=== PATIENT | female | born 1960 | race Caucasian/White ===

== ENCOUNTER → 2024-03-26 | Outpatient (CLI) | payer BC, SELFPAY ==
--- NOTE | 2024-03-26 13:00 | XR_ITS ---
Examination: Breast ultrasound complete, bilateral Date and time of exam: March 26, 2024 1321 hours INDICATIONS: Palpable right breast lump 10:00 position note is 5 months ago with breast pain, mammogram January 25 2024 mm opacity 9:00 position right breast 5 mm nodule 9:00 position right breast Technique: Real-time grayscale ultrasonographic imaging bilateral breasts, including all 4 quadrants as well as nipple retroareolar and axillary regions. Findings: Sonographic images right breast 10:00 oval mass circumscribed 11 x 6 x 9 mm Sonographic images left breast No cystic or solid mass IMPRESSION: BI-RADS Category 3: Probably benign findings One additional 6 month right breast sonogram follow-up is needed to document stability of 10:00 nodule right breast
--- NOTE | 2024-03-26 14:15 | XR_ITS ---
Examination: Screening digital mammography, bilateral Computer aided detection 3-D breast Tomosynthesis, bilateral Date and time of exam: March 26, 2024 1345 hours Compared to mammograms dating to November 07, 2017 Indication: Screening, patient states lump in the right breast 5 months Technique: Nonmagnified MLO, CC views of the breasts to been obtained, reconstructed from 3-D Tomosynthesis images. R2 computer aided detection program utilized for evaluation of suspicious masses and/or abnormal calcifications. 3-D Tomosynthesis images obtained. Findings: Scattered areas of fibroid rather density 8mm mass with partially indistinct margins at the palpable marker site upper outer right breast anterior depth Impression: BI-RADS Category 0: Incomplete: Need additional imaging evaluation 8 mm mass with partially indistinct margins at the palpable marker site upper outer right breast anterior depth, recommend follow-up spot tomographic views of this mass as well as right breast sonography to complete the workup
== END | disposition home or self-care (01) ==
PROVIDERS: PCP Family Medicine; Referring Provider Family Medicine; Visit Provider Family Medicine
DX: Z12.31 Encounter for screening mammogram for malignant neoplasm of breast (principal); N63.11 Unspecified lump in the right breast, upper outer quadrant
CPT/HCPCS: 76641; 77063; 77067

== ENCOUNTER 2024-04-13 14:49 | Emergency (ER) | payer BC, SELFPAY ==
[2024-04-13 14:50] VITALS: BMI 40.2
--- NOTE | 2024-04-13 14:53 | EKG_ITS ---
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
[2024-04-13 15:16] VITALS: BP 150/88; PULSE 79; RESP 18; TEMP 36.8; O2SAT 94
--- NOTE | 2024-04-13 15:23 | XR_ITS ---
Examination: PA lateral chest 2 views TECHNIQUE: Upright PA lateral chest 2 views Exam date and time: April 13, 2024 1538 hours COMPARISON: December 27, 2023 INDICATIONS: Chest pain today. FINDINGS: Normal heart size Moderate vascular congestion No ruddy pulmonary edema No lobar pneumonia IMPRESSION: Moderate vascular congestion
--- NOTE | 2024-04-13 15:23 | PD.EDRME ---
Rapid Medical Screening Exam RME Arrival date/time: 04/13/24 14:49 63-year-old female presents the emergency department today states she has had a cough ongoing for the last couple of months patient reports is taken to course of antibiotics as well as steroids patient reports that she took Mucinex today and felt palpitations Chief Complaint: Arrhythmia/Palpitations Time Seen by Provider: 04/13/24 14:57 Vital signs: Vital Signs Temperature 98.2 F 04/13/24 15:16 Pulse Rate 79 04/13/24 15:16 Respiratory Rate 18 04/13/24 15:16 Blood Pressure 150/88 H 04/13/24 15:16 Pulse Oximetry (%) 94 L 04/13/24 15:16 Oxygen Delivery Method Room Air 04/13/24 15:16
[2024-04-13 15:57] LABS: Basophils # (Auto) 0.1 Thou/mm3 (0.0-0.2); Basophils % (Auto) 1 % (0-2.5); Eosinophils # (Auto) 0.7 Thou/mm3 (0.0-0.5); Eosinophils % (Auto) 6 % (0-10); Hematocrit 37.3 % (36.0-46.0); Hemoglobin 12.6 g/dL (12.0-16.0); Immature Granulocytes % (Auto) 0 % (0-0); Immature Granulocytes Auto 0.05 Thou/mm3 (0.00-0.00); Lymphocytes # (Auto) 1.8 Thou/mm3 (1.0-4.8); Lymphocytes % (Auto) 15 % (10-50); Mean Corpuscular HGB Conc 33.8 g/dl (31.0-37.0); Mean Corpuscular Hemoglobin 30.2 pg (25.0-35.0); Mean Corpuscular Volume 89 fL (80-100); Monocytes # (Auto) 0.7 Thou/mm3 (0.0-0.8); Monocytes % (Auto) 6 % (0-12); Neutrophils # (Auto) 8.4 Thou/mm3 (1.8-7.7); Neutrophils % (Auto) 72 % (37-80); Nucleated Red Blood Cell % 0 /100 WBC (0); Platelet Count 300 Thou/mm3 (140-440); RDW Standard Deviation 47.5 fL (36.4-46.3); Red Blood Count 4.17 Miln/mm3 (4.00-5.20); White Blood Count 11.7 Thou/mm3 (3.6-11.0)
[2024-04-13 16:11] LABS: Alanine Aminotransferase 9 U/L (10-49); Albumin, Serum 4.7 gm/dL (3.4-4.8); Albumin/Globulin Ratio 1.8 (1.2-2.2); Alkaline Phosphatase 79 U/L (46-116); Anion Gap 9 (7-16); Aspartate Amino Transferase 11 U/L (0-34); BUN/Creatinine Ratio 9 Ratio (12-20); Bilirubin,Total 0.7 mg/dL (0.3-1.2); Blood Urea Nitrogen 8 mg/dL (9-23); Calcium 9.6 mg/dL (8.3-10.6); Calcium (Corrected) 9.6 mg/dL (8.5-10.1); Carbon Dioxide 29.5 mMol/L (20.0-31.0); Chloride 103 mMol/L (98-107); Creatinine (Component) 0.9 mg/dL (0.6-1.3); Estimated Creatinine Clearance 69.8 mL/min (>60); Globulin 2.6 gm/dL (2.3-3.5); Glucose 106 mg/dL (74-106); Osmolality,Calculated 279 (275-295); Potassium 3.3 mMol/L (3.4-5.1); Sodium 141 mMol/L (136-145); Total Protein 7.3 gm/dL (5.7-8.2); Troponin I < 0.002 ng/mL (0.0-0.045); eGFR > 60 See Note
[2024-04-13 17:40] LABS: B-Type Natriuretic Peptide 66 pg/mL (0-100)
[2024-04-13 19:21] VITALS: BP 148/70; PULSE 71; RESP 20; O2SAT 94
--- NOTE | 2024-04-13 19:28 | EDNOTE_ITS ---
ED General RME/HPI General Chief complaint: Arrhythmia/Palpitations Stated complaint: PALPITATION FOR 30 MINUTES Time Seen by Provider: 04/13/24 14:57 Arrival date/time: 04/13/24 14:49 CC: Palpitations HPI ongoing for approximately 15 minutes approximately 45 minutes ago with spontaneous resolution. The patient is awake alert oriented denies any chest pain states he has a history of taking 2 rounds of antibiotics and steroids for a lung infection , and then took Metamucil except for the cough and may feel bit better. The patient has no particular complaints at this time. RME / HPI RME / HPI narrative: 04/13/24 14:49 63-year-old female presents the emergency department today states she has had a cough ongoing for the last couple of months patient reports is taken to course of antibiotics as well as steroids patient reports that she took Mucinex today and felt palpitations Related Data Home Medications ?Medication ?Instructions ?Recorded ?Confirmed clonazepam 1 mg tablet (Klonopin) 1 mg PO BID PRN Anxiety #0 tabs 10/22/13 05/10/22 bupropion HCl 200 mg tablet,12 hr 200 mg PO QDAY ##0 11/22/15 05/10/22 sustained-release (Wellbutrin SR) fluconazole 150 mg tablet See Rx Instructions .Route .COMPLEX 05/10/22 05/10/22 hydrochlorothiazide 25 mg tablet 25 mg PO QDAY 05/10/22 05/10/22 hydrocodone 5 mg-acetaminophen 300 1 tab PO Q6H PRN shoulder pain 05/10/22 05/10/22 mg tablet lamotrigine 200 mg tablet 200 mg PO QDAY 05/10/22 05/10/22 nitrofurantoin 100 mg PO Q12H 05/10/22 05/10/22 monohydrate/macrocrystals 100 mg capsule pantoprazole 40 mg tablet,delayed 40 mg PO QDAY 05/10/22 05/10/22 release trazodone 50 mg tablet 50 mg PO TID 05/10/22 05/10/22 Allergies Allergy/AdvReac Type Severity Reaction Status Date / Time adhesive tape Allergy Severe SEVERE Verified 04/13/24 14:49 REDNESS AND SWELLING, PIMPLES diphenhydramine Allergy Severe SEVER Verified 04/13/24 14:49 HEADACHES morphine Allergy Severe PROJECTILE Verified 04/13/24 14:49 VOMITING, N/V nitroglycerin Allergy Severe HEADACHE Verified 04/13/24 14:49 latex Allergy Intermediate Rash Verified 04/13/24 14:49 ketorolac [From Toradol] Allergy Abdominal Verified 04/13/24 14:49 Pain Review of Systems Review of Systems Narrative Review of Systems: GEN: No fever, no chills, no weight loss EYES: No discharge, no visual changes, no pain HEENT: No ear pain, no congestion, no sore throat PULM: No shortness of breath, no cough, no congestion CV: No chest pain, no dyspnea on exertion, + palpitations GI: No nausea, no vomiting, no diarrhea, no pain, no constipation : No frequency, no urgency, no dysuria MUSC/SKEL: No joint pain, no back pain SKIN: No rash PSYCH: No hallucinations, no depression HEME/LYMPH: No easy bleeding or bruising tendencies NEURO: No weakness, no headache Past Medical History Past Medical History NEUROLOGIC: Positive Neurological Disorders and Head Trauma (2017 ER VISIT, 2015 OVERNIGHT STAY HAD LEFT WRIST ZULAY); Negative Seizures CARDIAC: Negative Cardiac Disorders or Congestive Heart Failure RESPIRATORY: Negative Chronic Obstructive Pulmonary Disease (COPD) GASTROINTESTINAL: Positive Gastrointestinal Disorders, Gall Bladder Disease (FOR THIS PROC), Diverticulosis, Ulcer, Irritable Bowel, Hiatal Hernia (ESOPHAGEAL), Hemorrhoids (NO SURG), Gastroesophageal Reflux Disease (TAKES MED) and Obesity GENITOURINARY: Negative Genitourinary Disorders or Renal Disease REPRODUCTIVE: Positive Previous Pregnancies (X2) MUSCULOSKELETAL: Positive Musculoskeletal Disorders, Arthritis, Carpal Tunnel Syndrome (VARUN) and Fractures (RIGHT ANKLE ORIF HAD SCREWS AND REM) ENT: Positive Head Trauma (2017 ER VISIT, 2015 OVERNIGHT STAY HAD LEFT WRIST ZULAY) ENDOCRINE: Negative Endocrine Disorders, Diabetes Mellitus Type 1 or Diabetes Mellitus Type 2 HEMATOLOGIC: Negative Blood Disorders PSYCHO/SOCIAL: Positive Bipolar Disorder, Depression and Anxiety OTHER HISTORY: Positive Chicken Pox, Measles and Mumps; Negative Hospitalization, Autoimmune Disease, Shingles, Falls, Blood Transfusions, Blood Transfusion Reaction, Anesthesia Reactions, Chemotherapy, Radiation Therapy or MRSA Family History FAMILY HISTORY: Positive Family Psychiatric Problems (MOTHER), Family Cardiac Disorders (BROTHER,SISTER (HTN) FATHER (UT),SISTER (CVA)), Family Gastrointestinal Problems (FATHER), Family Cancer (MOTHER,FATHER (LUNG)) and Family Surgery (MOTHER,SISTER); Negative Family Respiratory Disorders or Family Anesthesia Reaction Surgical History SURGICAL: Positive Arthroscopy (left wrist) and Hysterectomy (VARUN SALPING) Social History SMOKING STATUS: Never smoker ED Exam Narrative Physical exam: [General: Obese not in any acute distress Head normocephalic HEENT: Within acceptable limits Neck is supple nontender Chest equal chest rise nontender to palpation Respiratory: Clear to auscultation no wheezes crackles or rubs CV: Rate rhythm is regular no murmurs rubs or clicks Abdomen is distended secondary to body habitus soft nontender no masses positive bowel sounds all 4 quadrants Back: No CVA tenderness no spinous process tenderness from cervical spine thoracic and lumbar spine Skin: Intact no petechiae rash induration ulceration or crepitus Extremities: Moving all extremity against resistance cap refill less than 2 seconds neurosensory intact. No lower extremity edema. Neuro: Awake alert oriented x3 Glascow coma 15 no focal deficits] Course Quality Measures none Orders Category Date Time Status Bedside COVID-19 Antigen Test NOW Care 04/13/24 15:23 Completed Bedside Influenza A&B Antigen Test NOW Care 04/13/24 15:23 Completed EKG (ED ONLY) *Do not use* NOW Care 04/13/24 14:53 Completed EKG (ED Only) Stat Exams 04/13/24 14:53 Draft XR chest 2V Stat Exams 04/13/24 15:23 Completed BNP [B-Type Natriuretic Peptide] Stat Lab 04/13/24 15:34 Completed CBC Stat Lab 04/13/24 15:34 Completed Comprehensive Metabolic Panel Stat Lab 04/13/24 15:34 Completed Troponin I Stat Lab 04/13/24 15:34 Completed Vital Signs Vital signs: Vital Signs Temperature 98.2 F 04/13/24 15:16 Pulse Rate 79 04/13/24 15:16 Respiratory Rate 18 04/13/24 15:16 Blood Pressure 150/88 H 04/13/24 15:16 Pulse Oximetry (%) 94 L 04/13/24 15:16 Oxygen Delivery Method Room Air 04/13/24 15:16 [facility] Patient data External records reviewed:: [facility] previous records Clinical information provided by:: patient Social determinants that could affect healthcare access:: none Patient has the following chronic illnesses:: Obesity anxiety How is presenting disease/condition affected by chronic disease/condition?: u neffected by Evaluation data The following diagnostics were reviewed and interpreted by me:: lab results, radiology exam(s) and EKG tracing(s) Lab and/or radiology exams considered but not ordered:: EKG performed at 1514 shows a ventricular rate of 7 9 NV interval 155 QRS of 88 QTc of 418 this is sinus rhythm nonspecific ST segment changes. CBC shows no acute leukocytosis anemia thrombocytopenia CMP shows no mild elevated glucose level no other electrolyte imbalances renal impairment transaminitis or T. bili elevation Troponin is negative BNP is negative Chest x-ray as interpreted by me read by radiology shows mild vascular engorgement. Interpretation Summary: Palpitations have spontaneously resolved the patient has no acute finding we will discharge the patient home with palpitations. Medications Medications considered but not ordered:: None none Medication administrations:: None Consultations Consultation(s) initiated? (list below): No Diagnosis Differential Diagnosis ED Complaint MDM: ACS UT pneumonia Most likely diagnosis given after review of the tests above:: Palpitations Admission Indicated Admission indicated?: not indicated Explain why admission is indicated or not indicated:: Stable for discharge Admission Request Was there a request for admission?: No Disposition Plan Disposition Plan: Discharge Discharge Attestation Discharge Attestation: The patient and all family members were given an opportunity to ask questions and understood the discharge instructions. Discharge instructions specifically effects, indications for sooner follow up or return to the emergency department, and the expected course of current diagnosis. Patient condition: Stable Medical Decision Making Differential Diagnosis Differential Diagnosis: ACS UT pneumonia Lab Data 04/13/24 15:34 04/13/24 15:34 Labs: Lab Results 04/13/24 Range/Units 15:34 WBC 11.7 H (3.6-11.0) Thou/mm3 RBC 4.17 (4.00-5.20) Miln/mm3 Hgb 12.6 (12.0-16.0) g/dL Hct 37.3 (36.0-46.0) % MCV 89 (80-100) fL MCH 30.2 (25.0-35.0) pg MCHC 33.8 (31.0-37.0) g/dl RDW Std Deviation 47.5 H (36.4-46.3) fL Plt Count 300 (140-440) Thou/mm3 Neut % (Auto) 72 (37-80) % Lymph % (Auto) 15 (10-50) % [place] % (Auto) 6 (0-12) % Eos % (Auto) 6 (0-10) % Baso % (Auto) 1 (0-2.5) % Neut # (Auto) 8.4 H (1.8-7.7) Thou/mm3 Lymph # (Auto) 1.8 (1.0-4.8) Thou/mm3 [place] # (Auto) 0.7 (0.0-0.8) Thou/mm3 Eos # (Auto) 0.7 H (0.0-0.5) Thou/mm3 Baso # (Auto) 0.1 (0.0-0.2) Thou/mm3 Immature Gran # (Auto) 0.05 H (0.00-0.00) Thou/mm3 Absolute Nucleated RBC 0.00 (0.00-0.00) Thou/mm3 Immature Gran % 0 (0-0) % Nucleated RBC % 0 (0) /100 WBC Sodium 141 (136-145) mMol/L Potassium 3.3 L (3.4-5.1) mMol/L Chloride 103 (98-107) mMol/L Carbon Dioxide 29.5 (20.0-31.0) mMol/L Anion Gap 9 (7-16) BUN 8 L (9-23) mg/dL Creatinine 0.9 (0.6-1.3) mg/dL Estim Creat Clear Calc 69.8 (>60) mL/min eGFR > 60 (60 - ) See Note BUN/Creatinine Ratio 9 L (12-20) Ratio Glucose 106 (74-106) mg/dL Calculated Osmolality 279 (275-295) Calcium 9.6 (8.3-10.6) mg/dL Corrected Calcium 9.6 (8.5-10.1) mg/dL Total Bilirubin 0.7 (0.3-1.2) mg/dL AST 11 (0-34) U/L ALT 9 L (10-49) U/L Alkaline Phosphatase 79 (46-116) U/L Troponin I < 0.002 (0.0-0.045) ng/mL B-Natriuretic Peptide 66 (0-100) pg/mL Total Protein 7.3 (5.7-8.2) gm/dL Albumin 4.7 (3.4-4.8) gm/dL Globulin 2.6 (2.3-3.5) gm/dL Albumin/Globulin Ratio 1.8 (1.2-2.2) Discharge Plan Plan Patient Disposition: HOME (Self Care) Patient condition on transfer: Stable Prescriptions/Referrals Prescriptions/Med Rec: No Action clonazepam [Klonopin] 1 MG tablet 1 mg PO BID PRN (Reason: Anxiety) Qty: 0 bupropion HCl [Wellbutrin SR] 200 MG tablet extended release 12 hr 200 mg PO QDAY Qty: 0 lamotrigine 200 mg tablet 200 mg PO QDAY trazodone 50 mg tablet 50 mg PO TID fluconazole 150 mg tablet See Rx Instructions .ROUTE .COMPLEX Patient Comments: TAKE 1 TABLET BY MOUTH NOW, MAY REPEAT 1 TABLET IN 10 DAYS IF NEEDED Rx Instructions: TAKE 1 TABLET BY MOUTH NOW, MAY REPEAT 1 TABLET IN 10 DAYS IF NEEDED pantoprazole 40 mg tablet,delayed release (DR/EC) 40 mg PO QDAY Patient Comments: TAKE 1 TABLET BY MOUTH EVERY DAY FOR GERD hydrochlorothiazide 25 mg tablet 25 mg PO QDAY nitrofurantoin monohyd/m-cryst 100 mg capsule 100 mg PO Q12H Patient Comments: TAKE 1 CAPSULE BY MOUTH EVERY 12 HOURS WITH FOOD FOR 7 DAYS hydrocodone-acetaminophen 5-300 mg tablet 1 tab PO Q6H PRN (Reason: shoulder pain) Patient Comments: TAKE 1 TABLET BY MOUTH EVERY 6 HOURS NEEDED FOR SHOULDER PAIN DIRECTED FOR 30 DAYS Referrals: Jonathan Gonzalez MD [Primary Care Provider] - In 1 week Problem List Clinical Impression: Palpitations Patient/Caregiver Discharge Instructions Education Materials: ED Palpitations Print Language: Botswanan Stand Alone Forms: [employer] Award Info., Patient Portal Info Letter PA/CRIMINAL ANALYST Supervising Physician PA/CRIMINAL ANALYST Supervising Physician: Jac Vanessa ENP
== END 2024-04-13 19:40 | disposition home or self-care (01) ==
PROVIDERS: Nurse Practitioner Primary Care; Emergency Provider Emergency Medicine; PCP Family Medicine
DX: R00.2 Palpitations (principal); E66.9 Obesity, unspecified; Z68.41 Body mass index [BMI] 40.0-44.9, adult; F41.9 Anxiety disorder, unspecified
CPT/HCPCS: 36415; 71046; 80053; 83880; 84484; 85025; 87400; 87811; 93005; 99283

== ENCOUNTER → 2024-05-22 | Outpatient (CLI) | payer BC, SELFPAY ==
--- NOTE | 2024-05-22 13:35 | XR_ITS ---
Examination: PA lateral chest 2 views TECHNIQUE: Upright PA lateral chest 2 views Exam date and time: May 22, 2024 1418 hours INDICATIONS: Coughing beginning 3 months ago. FINDINGS: Normal heart size. Lungs are clear. Mild thoracic kyphosis, chronic mild old wedging lower dorsal vertebral bodies IMPRESSION: No active disease
[2024-05-22 14:54] LABS: Misc Send Out* See Sep Rpt
[2024-05-23 14:42] LABS: Cocci Serology, IgM Negative (Negative)
[2024-05-25 12:16] LABS: Cocci Serology, IgG Negative (Negative)
== END | disposition home or self-care (01) ==
LOC: CDIM 13:24 → COPL 14:42
PROVIDERS: PCP Family Medicine; Referring Provider Nurse Practitioner Family; Visit Provider Nurse Practitioner Family
DX: R05.3 Chronic cough (principal)
CPT/HCPCS: 36415; 71046; 86331; 86635; 86738

== ENCOUNTER 2024-11-05 08:07 | Outpatient (RCR) | payer BC, SELFPAY ==
--- NOTE | 2024-11-05 10:51 | CTCCONSULT_ITS ---
[facility] [address] [place], [place] [address] Consultation Note Date: 11/05/2024 MR#: [id number] Name: BLADIMIR GUTIERRES : 1960 Dx: C50.911 Malignant neoplasm of unspecified site of right female breast Attending physician. Vahe Weber NP [facility] Reason for consultation. Patient with recent diagnosis of triple negative right breast CA referred to the cancer treatment center. History of Present Illness: Patient is a former employee of medical records department at [employer] felt a lump in the right breast, and oval mass 11 x 6 x 9 cm noted at 10:00 noted and mammogram and sonogram probably benign category 3 with 6 months right breast sonogram recommended. Patient was referred to general surgeon Dr. 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 Patient now referred to the cancer treatment center. Past Medical History: History of bronchitis tonsillitis gallbladder removal bipolar and depression diagnosis Meds. Hydrochlorothiazide bupropion Protonix Klonopin Lamictal Farideh trazodone Latuda Allergies none to meds family history. Family history.. Father and mother both had lung cancer. 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 Review of Systems: Has experienced dry mouth constipation diarrhea anxiety chest pains coughing up blood difficulty hearing injury ears easy bruising hayfever headaches nocturia trouble swallowing unexplained fatigue weight gain and loss Physical Exam: General: Adequate nourished appearing lady no acute distress HEENT: Atraumatic normocephalic extraocular intact no oral lesion no cervical or supraclavicular apathy CV: Easily palpable right breast mass in the central and upper outer quadrant of the breast measuring about 4 cm in diameter. There is also right axillary fullness as opposed to the left. Chest clear to auscultation heart regular rate and rhythm ABD: Soft organomegaly tenderness EXT: No cyanosis clubbing or edema Assessment:1. Triple negative right breast CA, noted to be increasing in size appears to now be T2 size at least 4 cm in diameter in the central and upper outer quadrant of the breast. Right axillary adenopathy also palpated. 2. Has already seen general surgeon who recommends neoadjuvant chemo. 3. Will ask that port be placed along with getting PET for staging and Echo in preparation for chemo. Dr. Mantilla, medical oncologist, to see patient in a few days. 4. Eventual breast cancer surgery and possible radiation therapy was also discussed with patient. 5. Thank you very much for allowing me to evaluate this patient. Cc: Vahe Weber NP [facility] Bjorn Seay MD Electronically signed by: Giacomo Jacobs MD, DABR 11/05/2024 10:48 AM
== END 2024-11-12 23:59 | disposition home or self-care (01) ==
LOC: SCTC 08:07
PROVIDERS: PCP Nurse Practitioner Family; Referring Provider Nurse Practitioner Family; Visit Provider Radiology Therapeutic Radiology
DX: C50.411 Malignant neoplasm of upper-outer quadrant of right female breast (principal); Z17.421 Hormone receptor negative with human epidermal growth factor receptor 2 negative status; R59.0 Localized enlarged lymph nodes
CPT/HCPCS: 99213; G0463

== ENCOUNTER 2024-12-11 09:42 | Outpatient (RCR) | payer BC, SELFPAY ==
--- NOTE | 2024-11-30 11:40 | CTCCONSULT_ITS ---
Patient: BLADIMIR GUTIERRES : 1960 MR#: [id number] Page 3 of 5 CONSULTATION NOTE DATE OF CONSULTATION: 11/30/2024 NAME: BLADIMIR GUTIERRES ACCOUNT: [id number] : 1960 AGE: 63 REFERRING PHYSICIAN: Vahe Weber MD PRIMARY PHYSICIAN: Vahe Weber MD REASON FOR VISIT: Triple negative of right breast ONCOLOGY HISTORY: DIAGNOSIS: Malignant neoplasm of unspecified site of right female breast [ICD10] C50.911 DATE OF DIAGNOSIS: 09/17/2024 STAGE/TNM: [id number] TREATMENT HISTORY: Care?Plan Start?Date Cycle Day Intent TNBC?Pembro?17?cy?TaxCar?4?cy?AC?4?cy?Keynote?522 11/30/2024 1 21 Curative?(primary) HISTORY OF PRESENT ILLNESS: 63-year-old female WITH NEW DIAGNSIS breast cancer . Patient is doing well. Initially diagnosed in 01/2024 Waited long time because of insurance issues. OTHER MEDICAL HISTORY/CONDITIONS: Right invasive ducatl carcinoma - 09/18/24 Depression / Bi-polar Osteoarthrits Right knee surgery - 2016 [facility] -2005 [facility] rotatoter cuff repairs; 1001; 2002 [facility] carpal tunnel -1999 Appendectomy - 1994 Left knee surgery - 1989 Left ankle fracture repair - 1973 FAMILY HISTORY: Father:?LUNG?-?dx?50's Mother:?LUNG?-?dx?60's Sibling:?Hand?NECK?-?dx?60's Cancer History:?Maternal aunt - breast - dx 50's SOCIAL HISTORY: Occupational?History:?RETIRED Education?Level:?Attended College, did not graduate Marital?Status:? 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 CONTROL UNKNOWN AMOUNT OF YRS :?3 Live?Births:?0 Age?1st?:?21 MEDICATIONS: 1. BuSpar - 200 mg Twice a Day 2. hydrochlorothiazide - 25 mg Daily 3. Klonopin - 1 mg Twice a Day 4. LaMICtal ODT - 200 mg 1 tab Twice a Day 5. Latuda - 40 mg 1 tab Every day before sleep 6. Protonix - 40 mg Daily Medications Last Reconciled by Yudelka Lam RN on 11/30/2024 ALLERGIES: morphine; diphenhydramine HCl REVIEW OF SYSTEMS: A complete 14-point review of systems was performed and is negative except as noted in interval history. PHYSICAL EXAMINATION: VITAL SIGNS: B/P?122/80, Height?62.5?inches, Oxygen?Saturation?95% Weight?225?lbs (Change?since?11/05/24:?0?lbs) PAIN: 8 - Very severe pain ECOG Performance Status: 2 - Symptomatic; ambulatory; capable of self-care; >50% of waking hrs. not in bed GENERAL APPEARANCE: Appears well, in no apparent distress, appropriately interactive. HEENT: Normocephalic, no temporal wasting, normal conjunctiva, no scleral icterus, normal hearing, lips without lesions, neck normal range of motion. CARDIOVASCULAR: Not assessed. PULMONARY: Normal respiratory effort, no respiratory distress or use of accessory muscles, speaking in full sentences, no tachypnea. EXTREMITIES: No pedal edema or cyanosis. SKIN: Normal skin appearance. NEUROLOGIC: Alert and oriented x4. PSHYCHIATRIC: Appropriate affect, mood normal, behavior normal, intact thought and speech. 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 Er/pr/her 2 negative Cyfopw3wy on keynote trial with chemoimmunotherapy RTC in 6-8 weeks Schedule for clinical trial ORDERS: Order # Description [id number] 3D Mammogram Diagnostic + Right + Breast Ultrasound [id number] MRI + Breast + With W/O Contrast [id number] CT Scan + Chest + Abdomen and Pelvis [id number] CBC + Comprehensive Metabolic Panel [id number] Lab Appointment [id number] CBC + Comprehensive Metabolic Panel [id number] Lab Appointment [id number] CBC + Comprehensive Metabolic Panel [id number] Lab Appointment [id number] CBC + Comprehensive Metabolic Panel [id number] Lab Appointment [id number] CBC + Comprehensive Metabolic Panel [id number] Lab Appointment [id number] CBC + Comprehensive Metabolic Panel [id number] Lab Appointment [id number] CBC + Comprehensive Metabolic Panel [id number] Lab Appointment [id number] CBC + Comprehensive Metabolic Panel [id number] Lab Appointment [id number] CBC + Comprehensive Metabolic Panel [id number] Lab Appointment [id number] CBC + Comprehensive Metabolic Panel [id number] Lab Appointment [id number] CBC + Comprehensive Metabolic Panel [id number] Lab Appointment [id number] CBC + Comprehensive Metabolic Panel [id number] Lab Appointment [id number] Cardiac ECHO [id number] CBC + Comprehensive Metabolic Panel [id number] Lab Appointment [id number] CBC + Comprehensive Metabolic Panel [id number] Lab Appointment [id number] CBC + Comprehensive Metabolic Panel [id number] Lab Appointment [id number] CBC + Comprehensive Metabolic Panel [id number] Lab Appointment [id number] Cardiac ECHO [id number] CBC + Comprehensive Metabolic Panel [id number] Lab Appointment [id number] CBC + Comprehensive Metabolic Panel [id number] Lab Appointment [id number] CBC + Comprehensive Metabolic Panel [id number] Lab Appointment [id number] CBC + Comprehensive Metabolic Panel [id number] Lab Appointment [id number] CBC + Comprehensive Metabolic Panel [id number] Lab Appointment [id number] CBC + Comprehensive Metabolic Panel [id number] Lab Appointment [id number] CBC + Comprehensive Metabolic Panel [id number] Lab Appointment [id number] CBC + Comprehensive Metabolic Panel [id number] Lab Appointment [id number] CBC + Comprehensive Metabolic Panel [id number] Lab Appointment RETURN TO CLINIC: I reviewed the diagnosis, prognosis, and recommended treatment/procedure options with the patient (and/or their legal fulfillment representative), including the potential benefits, risks, side effects and alternative therapies. We also discussed the option of no treatment and the possibility of clinical trial participation, if applicable. All questions were addressed, and they demonstrated understanding. They provided informed consent to proceed with the proposed plan of care. BILLING AND COMPLIANCE: I reviewed external records from providers outside my specialty as summarized above. I spent a total of 50 minutes on this patient?s care on the day of their visit excluding time spent related to any billed procedures. This time includes time spent with the patient as well as time spent documenting in the medical record, reviewing patients records and tests, obtaining history, placing orders, communicating with other healthcare professionals, counseling the patient, family or caregiver, and/or care coordination for the diagnoses above. Electronically Signed by: Yair Mantilla MD T: 11:38 AM CC: PCP: Vahe Weber Referring: Vahe Weber This document was completed utilizing speech recognition software. Grammatical errors, random word insertions, pronoun errors, and incomplete sentences are an occasional consequence of this system due to software limitations, ambient noise, and hardware issues. Any formal questions or concerns about the content, text or information contained within the body of this dictation should be directly addressed to the provider for clarification.
== END 2024-12-13 23:59 | disposition home or self-care (01) ==
LOC: SCTC 09:42
PROVIDERS: PCP Nurse Practitioner Family; Referring Provider Nurse Practitioner Family; Visit Provider Internal Medicine Hematology & Oncology
DX: C50.411 Malignant neoplasm of upper-outer quadrant of right female breast (principal); Z17.421 Hormone receptor negative with human epidermal growth factor receptor 2 negative status
CPT/HCPCS: 99213; G0463

== ENCOUNTER → 2024-12-11 | Outpatient (CLI) | payer BC, SELFPAY ==
--- NOTE | 2024-12-11 13:21 | XR_ITS ---
Examination: Right knee 2 views Technique one AP lateral right knee 2 views Date and time: December 11, 2024 1359 hours INDICATIONS: Patient fell 3 weeks ago with injury to the knee, knee pain. FINDINGS: Significant osteopenia. No fracture or dislocation. Minimal narrowing medial and lateral joint spaces IMPRESSION: No fracture
== END | disposition home or self-care (01) ==
LOC: CDIM 11:49
PROVIDERS: PCP Nurse Practitioner Family; Referring Provider Nurse Practitioner Family; Visit Provider Nurse Practitioner Family
DX: S89.91XA Unspecified injury of right lower leg, initial encounter (principal); W19.XXXA Unspecified fall, initial encounter
CPT/HCPCS: 73560

== ENCOUNTER → 2024-12-17 | Outpatient (CLI) | payer BC, SELFPAY ==
--- NOTE | 2024-12-17 09:30 | ECHO_ITS ---
Transthoracic Echo Report Ht (in): 63 Wt (lb): 231 Exam Location: Echo Lab Status: Preadmit Degreasing Solution Reclaimer: Sarah Kate Indications: Procedure Performed: BP: 141 / 83 HR: MEASUREMENTS (Male / Female) Normal Values 2D ECHO LV Diastolic Diameter PLAX 4.8 cm 4.2 - 5.9 / 3.9 - 5.3 cm LV Systolic Diameter PLAX 3.2 cm IVS Diastolic Thickness 0.7 cm 0.6 - 1.0 / 0.6 - 0.9 cm LVPW Diastolic Thickness 0.7 cm 0.6 - 1.0 / 0.6 - 0.9 cm LV Relative Wall Thickness 0.3 LVOT Diameter 2.1 cm LA Volume Index 20.7 cm?/m? 16 - 28 cm?/m? Ascending Aorta Diameter 3.3 cm M-MODE AV Cusp Separation MM 1.6 cm DOPPLER AV Peak Velocity 105.0 cm/s AV Peak Gradient 4.4 mmHg LVOT Peak Velocity 90.0 cm/s LVOT Peak Gradient 3.2 mmHg LVOT Velocity Time Integral 21.2 cm AV Area Cont Eq pk 3.0 cm? MV Area PHT 4.4 cm? Mitral E Point Velocity 83.4 cm/s Mitral A Point Velocity 81.0 cm/s Mitral E to A Ratio 1.0 LV E' Lateral Velocity 9.7 cm/s Mitral E to LV E' Lateral Ratio 8.6 LV E' Septal Velocity 9.1 cm/s Mitral E to LV E' Septal Ratio 9.1 TR Peak Velocity 193.0 cm/s TR Peak Gradient 14.9 mmHg FINDINGS Left Ventricle Normal left ventricular size, wall thickness, systolic function with no obvious regional wall motion abnormalities. Normal left ventricular diastolic filling pattern for age. The ejection fraction is visually estimated at 65 %. Right Ventricle The right ventricle is normal in size and systolic function. The estimated right ventricular systolic pressure, 18 mmHg. Left Atrium The left atrium is normal by two-dimensional, color flow and Doppler imaging with no structural abnormalities, no thrombus formation present. Right Atrium The right atrium is normal by two-dimensional imaging, color flow and Doppler imaging with no structural abnormalities, no thrombus formation present. Atrial Septum The interatrial septum appears normal with no evidence of a shunt. Aorta The aorta is normal by two-dimensional, color flow and Doppler interrogation. Mitral Valve The mitral valve is normal by two-dimensional, color flow and Doppler interrogation. There is no significant mitral valve regurgitation, stenosis or prolapse. Aortic Valve The aortic valve is trileaflet and normal by two-dimensional, color flow and Doppler interrogation. There is mild aortic regurgitation. Tricuspid Valve The tricuspid valve is normal by two-dimensional, color flow and Doppler interrogation. There is mild tricuspid valve regurgitation. Pulmonic Valve The pulmonic valve is not well visualized. There is no significant pulmonic valve regurgitation. Vessels The pulmonary artery appears normal. The inferior vena cava pulmonary and hepatic veins appear normal. Pericardium The pericardium is normal by two-dimensional imaging. There is no significant pericardial effusion. CONCLUSIONS The transthoracic study is normal by two-dimensional, color flow imaging and Doppler interrogation. Normal left ventricular size and function. Approximate ejection fraction is 65%. Normal RV sixe and function Mild to moderate 1-2+ aortic regurgitation Mild tricuspid and mitral regurgitation Aleksandra Stanley (Electronically Signed) Final Date: 17 December 2024 17:36
== END | disposition home or self-care (01) ==
PROVIDERS: PCP Nurse Practitioner Family; Referring Provider Radiology Therapeutic Radiology; Visit Provider Radiology Therapeutic Radiology
DX: I08.3 Combined rheumatic disorders of mitral, aortic and tricuspid valves (principal); C50.911 Malignant neoplasm of unspecified site of right female breast
CPT/HCPCS: 93306

== ENCOUNTER 2025-01-11 07:39 | Outpatient (RCR) | payer MEDICARE, BC, SELFPAY ==
[2024-12-30 16:04] LABS: Basophils # (Auto) 0.1 Thou/mm3 (0.0-0.2); Basophils % (Auto) 1 % (0-2.5); Eosinophils # (Auto) 0.2 Thou/mm3 (0.0-0.5); Eosinophils % (Auto) 3 % (0-10); Hematocrit 34.8 % (36.0-46.0); Hemoglobin 11.7 g/dL (12.0-16.0); Immature Granulocytes Auto 0.04 Thou/mm3 (0.00-0.00); Lymphocytes # (Auto) 1.7 Thou/mm3 (1.0-4.8); Lymphocytes % (Auto) 22 % (10-50); Mean Corpuscular HGB Conc 33.6 g/dl (31.0-37.0); Mean Corpuscular Hemoglobin 29.8 pg (25.0-35.0); Mean Corpuscular Volume 89 fL (80-100); Monocytes # (Auto) 0.5 Thou/mm3 (0.0-0.8); Monocytes % (Auto) 6 % (0-12); Neutrophils # (Auto) 5.2 Thou/mm3 (1.8-7.7); Neutrophils % (Auto) 68 % (37-80); Nucleated Red Blood Cell # 0.00 Thou/mm3 (0.00-0.00); Nucleated Red Blood Cell % 0 /100 WBC (0); Platelet Count 294 Thou/mm3 (140-440); RDW Standard Deviation 45.8 fL (36.4-46.3); Red Blood Count 3.92 Miln/mm3 (4.00-5.20); White Blood Count 7.7 Thou/mm3 (3.6-11.0)
[2024-12-30 16:34] LABS: Alanine Aminotransferase 9 U/L (10-49); Albumin, Serum 3.9 gm/dL (3.4-4.8); Albumin/Globulin Ratio 1.7 (1.2-2.2); Alkaline Phosphatase 70 U/L (46-116); Anion Gap 8 (7-16); Aspartate Amino Transferase 14 U/L (0-34); BUN/Creatinine Ratio 15 Ratio (12-20); Bilirubin,Total 0.6 mg/dL (0.3-1.2); Blood Urea Nitrogen 12 mg/dL (9-23); Calcium 8.9 mg/dL (8.3-10.6); Calcium (Corrected) 9.0 mg/dL (8.5-10.1); Carbon Dioxide 28.1 mMol/L (20.0-31.0); Chloride 106 mMol/L (98-107); Creatinine (Component) 0.8 mg/dL (0.6-1.3); Globulin 2.3 gm/dL (2.3-3.5); Glucose 97 mg/dL (74-106); Osmolality,Calculated 282 (275-295); Potassium 3.3 mMol/L (3.4-5.1); Sodium 142 mMol/L (136-145); Thyroid Stimulating Hormone 1.48 uIU/mL (0.55-4.78); Total Protein 6.2 gm/dL (5.7-8.2); eGFR > 60 See Note
[2024-12-30 16:39] LABS: CA 15-3 16.9 U/mL (<32.4)
[2025-01-08 11:12] LABS: Basophils # (Auto) 0.1 Thou/mm3 (0.0-0.2); Basophils % (Auto) 1 % (0-2.5); Eosinophils # (Auto) 0.2 Thou/mm3 (0.0-0.5); Eosinophils % (Auto) 3 % (0-10); Hematocrit 36.6 % (36.0-46.0); Hemoglobin 12.6 g/dL (12.0-16.0); Immature Granulocytes Auto 0.03 Thou/mm3 (0.00-0.00); Lymphocytes # (Auto) 1.2 Thou/mm3 (1.0-4.8); Lymphocytes % (Auto) 20 % (10-50); Mean Corpuscular HGB Conc 34.4 g/dl (31.0-37.0); Mean Corpuscular Hemoglobin 30.2 pg (25.0-35.0); Mean Corpuscular Volume 88 fL (80-100); Monocytes # (Auto) 0.3 Thou/mm3 (0.0-0.8); Monocytes % (Auto) 4 % (0-12); Neutrophils # (Auto) 4.2 Thou/mm3 (1.8-7.7); Neutrophils % (Auto) 71 % (37-80); Nucleated Red Blood Cell # 0.00 Thou/mm3 (0.00-0.00); Nucleated Red Blood Cell % 0 /100 WBC (0); Platelet Count 339 Thou/mm3 (140-440); RDW Standard Deviation 43.6 fL (36.4-46.3); Red Blood Count 4.17 Miln/mm3 (4.00-5.20); White Blood Count 5.9 Thou/mm3 (3.6-11.0)
[2025-01-08 11:31] LABS: Alanine Aminotransferase 11 U/L (10-49); Albumin, Serum 4.4 gm/dL (3.4-4.8); Albumin/Globulin Ratio 1.8 (1.2-2.2); Alkaline Phosphatase 67 U/L (46-116); Anion Gap 11 (7-16); Aspartate Amino Transferase 12 U/L (0-34); BUN/Creatinine Ratio 16 Ratio (12-20); Bilirubin,Total 0.6 mg/dL (0.3-1.2); Blood Urea Nitrogen 14 mg/dL (9-23); Calcium 9.7 mg/dL (8.3-10.6); Calcium (Corrected) 9.7 mg/dL (8.5-10.1); Carbon Dioxide 28.5 mMol/L (20.0-31.0); Chloride 103 mMol/L (98-107); Creatinine (Component) 0.9 mg/dL (0.6-1.3); Globulin 2.4 gm/dL (2.3-3.5); Glucose 112 mg/dL (74-106); Osmolality,Calculated 284 (275-295); Potassium 3.5 mMol/L (3.4-5.1); Sodium 142 mMol/L (136-145); Thyroid Stimulating Hormone 1.00 uIU/mL (0.55-4.78); Total Protein 6.8 gm/dL (5.7-8.2); eGFR > 60 See Note
[2025-01-08 11:46] LABS: CA 15-3 21.4 U/mL (<32.4)
== END 2025-01-12 23:59 | disposition home or self-care (01) ==
LOC: SCTC 07:39
PROVIDERS: PCP Nurse Practitioner Family; Referring Provider Nurse Practitioner Family; Visit Provider Internal Medicine Hematology & Oncology
DX: Z51.12 Encounter for antineoplastic immunotherapy (principal); C50.411 Malignant neoplasm of upper-outer quadrant of right female breast; Z17.421 Hormone receptor negative with human epidermal growth factor receptor 2 negative status
CPT/HCPCS: 36591; 80053; 84443; 85025; 86300; 96367; 96375; 96413; 96415; 96417; A4216; J1100; J1453; J1642; J2405; J3490; J7040; J7050; J7060; J9045; J9267; J9271

== ENCOUNTER → 2025-01-19 | Outpatient (CLI) | payer MEDICARE, BC, SELFPAY ==
--- NOTE | 2025-01-19 14:48 | XR_ITS ---
Examination: CT chest with intravenous contrast CT abdomen with intravenous contrast CT pelvis with intravenous contrast 2-D coronal and sagittal reconstructions Time of exam: January 19, 2025, 1636 hours, comparison will CT abdomen pelvis December 06, 2014 INDICATIONS: Diagnosis malignant neoplasm right female breast CTDI: vol (mGy) : 18.7 DLP: (mGycm): 1264 Technique: Multiple axial images of the chest, abdomen and pelvis with intravenous contrast, 3.0 mm slice thickness. Images obtained post intravenous injection Isovue 370 60 cc. 2-D sagittal and coronal reconstructions. Low dose protocols were performed. One or more of the following dose reduction techniques were used; automated exposure control, adjustment of the mA and/or KV according to patient size, use of iterative reconstruction technique. Findings: Bilateral thyroid nodules, the largest on the right side 12 mm on the left side 8 mm No thoracic aortic aneurysmal dilatation or dissection No pulmonary artery emboli No paratracheal tracheobronchial or bronchopulmonary adenopathy No breast or chest wall mass noted on this study No pathologic axillary lymphadenopathy 4 mm pulmonary nodule lingular segment left upper lobe axial image 156 8 mm calcified granuloma posterior right lung axial image 188 6 mm pulmonary nodule right lower lobe axial image 204 Multiple low-density liver lesions, the largest in the anterior right lower lobe 16 mm which appear to be cysts Spleen is not enlarged Absent gallbladder Fatty infiltration throughout the pancreas Normal adrenal glands No paracaval periaortic lymphadenopathy, no hydronephrosis No pelvic lymphadenopathy Colonic diverticulosis, no diverticulitis Contracted urinary bladder Absent uterus Severe osteopenia No osteolytic or osteoblastic lesions IMPRESSION: Bilateral thyroid nodules, consider dedicated thyroid sonography follow-up No mediastinal lymphadenopathy 4 mm noncalcified pulmonary nodule lingular segment left upper lobe 6 mm noncalcified pulmonary nodule right lower lobe With the study as baseline, suggest 6-month follow-up CT chest without contrast to exclude early pulmonary nodular metastatic disease Recommend pelvic sonography to confirm multiple benign liver cysts No abdominal or pelvic lymphadenopathy
== END | disposition home or self-care (01) ==
PROVIDERS: PCP Nurse Practitioner Family; Referring Provider Internal Medicine Hematology & Oncology; Visit Provider Internal Medicine Hematology & Oncology
DX: E04.2 Nontoxic multinodular goiter (principal); R91.8 Other nonspecific abnormal finding of lung field; C50.911 Malignant neoplasm of unspecified site of right female breast
CPT/HCPCS: 71260; 74177; A4649; Q9967

== ENCOUNTER 2025-01-25 07:20 | Outpatient (RCR) | payer MEDICARE, BC, SELFPAY ==
[2025-01-25 08:20] LABS: Basophils # (Auto) 0.1 Thou/mm3 (0.0-0.2); Basophils % (Auto) 1 % (0-2.5); Eosinophils # (Auto) 0.1 Thou/mm3 (0.0-0.5); Eosinophils % (Auto) 2 % (0-10); Hematocrit 33.5 % (36.0-46.0); Hemoglobin 11.2 g/dL (12.0-16.0); Immature Granulocytes Auto 0.02 Thou/mm3 (0.00-0.00); Lymphocytes # (Auto) 0.8 Thou/mm3 (1.0-4.8); Lymphocytes % (Auto) 14 % (10-50); Mean Corpuscular HGB Conc 33.4 g/dl (31.0-37.0); Mean Corpuscular Hemoglobin 29.6 pg (25.0-35.0); Mean Corpuscular Volume 88 fL (80-100); Monocytes # (Auto) 0.5 Thou/mm3 (0.0-0.8); Monocytes % (Auto) 7 % (0-12); Neutrophils # (Auto) 4.5 Thou/mm3 (1.8-7.7); Neutrophils % (Auto) 75 % (37-80); Nucleated Red Blood Cell # 0.00 Thou/mm3 (0.00-0.00); Nucleated Red Blood Cell % 0 /100 WBC (0); Platelet Count 258 Thou/mm3 (140-440); RDW Standard Deviation 51.6 fL (36.4-46.3); Red Blood Count 3.79 Miln/mm3 (4.00-5.20); White Blood Count 6.1 Thou/mm3 (3.6-11.0)
[2025-01-25 08:40] LABS: Alanine Aminotransferase 11 U/L (10-49); Albumin, Serum 3.9 gm/dL (3.4-4.8); Albumin/Globulin Ratio 1.9 (1.2-2.2); Alkaline Phosphatase 59 U/L (46-116); Anion Gap 11 (7-16); Aspartate Amino Transferase 12 U/L (0-34); BUN/Creatinine Ratio 10 Ratio (12-20); Bilirubin,Total 0.8 mg/dL (0.3-1.2); Blood Urea Nitrogen 8 mg/dL (9-23); Calcium 8.9 mg/dL (8.3-10.6); Calcium (Corrected) 9.0 mg/dL (8.5-10.1); Carbon Dioxide 27.2 mMol/L (20.0-31.0); Chloride 106 mMol/L (98-107); Creatinine (Component) 0.8 mg/dL (0.6-1.3); Globulin 2.1 gm/dL (2.3-3.5); Glucose 102 mg/dL (74-106); Osmolality,Calculated 285 (275-295); Potassium 3.6 mMol/L (3.4-5.1); Sodium 144 mMol/L (136-145); Thyroid Stimulating Hormone 2.76 uIU/mL (0.55-4.78); Total Protein 6.0 gm/dL (5.7-8.2); eGFR > 60 See Note
[2025-01-25 08:55] LABS: CA 15-3 19.6 U/mL (<32.4)
== END 2025-02-12 23:59 | disposition home or self-care (01) ==
LOC: SCTC 07:20
PROVIDERS: PCP Nurse Practitioner Family; Referring Provider Nurse Practitioner Family; Visit Provider Internal Medicine Hematology & Oncology
DX: Z51.12 Encounter for antineoplastic immunotherapy (principal); C50.411 Malignant neoplasm of upper-outer quadrant of right female breast; Z17.421 Hormone receptor negative with human epidermal growth factor receptor 2 negative status
CPT/HCPCS: 80053; 84443; 85025; 86300; 96367; 96375; 96413; 96417; J1100; J1434; J1642; J3490; J7040; J7050; J7060; J9045; J9267; J9271

== ENCOUNTER 2025-03-17 10:09 | Outpatient (RCR) | payer MEDICARE, BC, SELFPAY ==
--- NOTE | 2025-03-17 12:08 | CTCFLWUP_ITS ---
Patient: BLADIMIR GUTIERRES : 1960 Page 3 of 5 FOLLOW UP NOTE DATE OF SERVICE: 03/17/2025 NAME: BLADIMIR GUTIERRES ACCOUNT: [id number] : 1960 AGE: 64 INTERVAL HISTORY: Patient recently fell and had broken her ankle. Patient broke her right ankle fracture and displacement along with bruising of her right hip. Patient is not convalescent home for rehabilitation. Patient had fall on January 26, 2025. Patient's last chemo was in January 25. She has completed first 3 treatments. Patient is feeling pain in her right breast and worrying that the cancer may be growing. Patient was advised by her orthopedic not to continue chemotherapy until she gets clearance from orthopedics. Patient have appointment with orthopedic next Saturday on March 27, 2025. Patient is yet to see breast surgeon. Initial plan was to finish neoadjuvant chemotherapy followed by lumpectomy followed by radiation. Patient want to conserve her breast and do not want a mastectomy. Patient requesting a referral to general surgery. ONCOLOGY HISTORY: DIAGNOSIS: Malignant neoplasm of unspecified site of right female breast [ICD10] C50.911 DATE OF DIAGNOSIS: 09/17/2024 STAGE/TNM: [id number] TREATMENT HISTORY: Care?Plan Start?Date Cycle Day Intent TNBC?Pembro?17?cy?TaxCar?4?cy?AC?4?cy?Keynote?522 12/31/2024 1 21 Curative?(primary) HISTORY OF PRESENT ILLNESS: 64-year-old female WITH NEW DIAGNSIS breast cancer . Patient is doing well. Initially diagnosed in 01/2024 Waited long time because of insurance issues. OTHER MEDICAL HISTORY/CONDITIONS: Right invasive ducatl carcinoma - 09/18/24 Depression / Bi-polar Osteoarthrits Right knee surgery - 2016 [facility] -2005 [facility] rotatoter cuff repairs; 1001; 2002 [facility] carpal tunnel -1999 Appendectomy - 1994 Left knee surgery - 1989 Left ankle fracture repair - 1973 FAMILY HISTORY: Father:?LUNG?-?dx?50's Mother:?LUNG?-?dx?60's Sibling:?Hand?NECK?-?dx?60's Cancer History:?Maternal aunt - breast - dx 50's SOCIAL HISTORY: Occupational?History:?RETIRED Education?Level:?Attended College, did not graduate Marital?Status:? 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 CONTROL UNKNOWN AMOUNT OF YRS :?3 Live?Births:?0 Age?1st?:?21 MEDICATIONS: 1. BuSpar - 200 mg Twice a Day 2. hydrochlorothiazide - 25 mg Daily 3. Klonopin - 1 mg Twice a Day 4. LaMICtal ODT - 200 mg 1 tab Twice a Day 5. Latuda - 40 mg 1 tab Every day before sleep 6. ondansetron - 8 mg 1 tab Daily 7. prochlorperazine maleate - 5 mg 1 tab Daily 8. Protonix - 40 mg Daily Medications Last Reconciled by Ame Mcallister MD on 03/17/2025 ALLERGIES: morphine; diphenhydramine HCl REVIEW OF SYSTEMS: A complete 14-point review of systems was performed and is negative except as noted in interval history. PHYSICAL EXAMINATION: VITAL SIGNS: Temperature?99, B/P?143/86, Oxygen?Saturation?95% Weight?227?lbs PAIN: 0 - No pain ECOG Performance Status: 0 - Asymptomatic and fully active GENERAL APPEARANCE: Appears well, in no apparent distress, appropriately interactive. HEENT: Normocephalic, no temporal wasting, normal conjunctiva, no scleral icterus, normal hearing, lips without lesions, neck normal range of motion. CARDIOVASCULAR: Not assessed. PULMONARY: Normal respiratory effort, no respiratory distress or use of accessory muscles, speaking in full sentences, no tachypnea. EXTREMITIES: No pedal edema or cyanosis. SKIN: Normal skin appearance. NEUROLOGIC: Alert and oriented x4. PSHYCHIATRIC: Appropriate affect, mood normal, behavior normal, intact thought and speech. LABORATORY DATA: I have personally reviewed and interpreted each of the patient?s relevant lab tests, abnormal findings are below: Date 01/08/25 01/25/25 ??WHITE?BLOOD?COUNT?(Thou/mm3) 5.9 6.1 ? ??RED?BLOOD?COUNT?(Miln/mm3) 4.17 3.79?L ? ??HEMOGLOBIN?(gm/dl) 12.6 11.2?L ? ??HEMATOCRIT?(%) 36.6 33.5?L ? ??PLATELET?COUNT?(Thou/mm3) 339 258 ? ??NEUTROPHILS?%,?AUTO?(%) 71 75 ? ??LYMPH?%,?AUTO?(%) 20 14 ? ??NEUTROPHILS,?AUTO?(Thou/mm3) 4.2 4.5 ? ??GLUCOSE,RANDOM?(mg/dL) ? 102 ? ??BLOOD?UREA?NITROGEN?(mg/dL) ? 8?L ? ??CREATININE?(mg/dL) ? 0.80 ? ??SODIUM?(mmol/L) ? 144 ? ??POTASSIUM?(mmol/L) ? 3.6 ? ??CHLORIDE?(mmol/L) ? 106 ? ??CrCl?(CandG)?(ml/min) ? 81.87 116.27 ??AST/SGOT?(Unit/L) ? 12 ? ??ALT/SGPT?(Unit/L) ? 11 ? ??ALKALINE?PHOSPHATASE?(Unit/L) ? 59 ? ??BILIRUBIN,?TOTAL?(mg/dL) ? 0.8 ? ??PROTEIN?TOTAL?(gm/dl) ? 6.0 ? ??ALBUMIN,?SERUM?(gm/dl) ? 3.9 ? ??GLOBULIN?(gm/dl) ? 2.1?L ? ??ALBUMIN/GLOBULIN?RATIO ? 1.9 ? ??CALCIUM,?SERUM?(mg/dL) ? 8.9 ? ??CALCIUM?SERUM?(CORRECTED)?(mg/dL) ? 9.0 ? 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 Er/pr/her 2 negative Started on keynote trial with chemoimmunotherapy patient received 3 cycles of treatment Patient cannot continue chemotherapy right now will wait for orthopedics clearance Will refer to general surgery to see if breast lumpectomy can be performed and patient can resume chemotherapy after surgery If patient gets clearance from the orthopedics then we can resume chemotherapy Patient will contact chemo nurses regarding the same RTC in 6-8 weeks ORDERS: Order # Description [id number] CBC + Comprehensive Metabolic Panel [id number] Lab Appointment [id number] Cardiac ECHO [id number] CBC + Comprehensive Metabolic Panel [id number] Lab Appointment [id number] CBC + Comprehensive Metabolic Panel [id number] Lab Appointment [id number] CBC + Comprehensive Metabolic Panel [id number] Lab Appointment [id number] CBC + Comprehensive Metabolic Panel [id number] Lab Appointment [id number] Cardiac ECHO [id number] CBC + Comprehensive Metabolic Panel [id number] Lab Appointment [id number] CBC + Comprehensive Metabolic Panel [id number] Lab Appointment [id number] CBC + Comprehensive Metabolic Panel [id number] Lab Appointment [id number] CBC + Comprehensive Metabolic Panel [id number] Lab Appointment [id number] CBC + Comprehensive Metabolic Panel [id number] Lab Appointment [id number] CBC + Comprehensive Metabolic Panel [id number] Lab Appointment [id number] CBC + Comprehensive Metabolic Panel [id number] Lab Appointment [id number] CBC + Comprehensive Metabolic Panel [id number] Lab Appointment [id number] CBC + Comprehensive Metabolic Panel [id number] Lab Appointment RETURN TO CLINIC: I reviewed the diagnosis, prognosis, and recommended treatment/procedure options with the patient (and/or their legal commercial sales representative), including the potential benefits, risks, side effects and alternative therapies. We also discussed the option of no treatment and the possibility of clinical trial participation, if applicable. All questions were addressed, and they demonstrated understanding. They provided informed consent to proceed with the proposed plan of care. BILLING AND COMPLIANCE: I reviewed external records from providers outside my specialty as summarized above. I spent a total of 50 minutes on this patient?s care on the day of their visit excluding time spent related to any billed procedures. This time includes time spent with the patient as well as time spent documenting in the medical record, reviewing patients records and tests, obtaining history, placing orders, communicating with other healthcare professionals, counseling the patient, family or caregiver, and/or care coordination for the diagnoses above. Electronically Signed by: Yair Mantilla MD T: 12:06 PM CC: PCP: Vahe Weber Referring: Vahe Weber This document was completed utilizing speech recognition software. Grammatical errors, random word insertions, pronoun errors, and incomplete sentences are an occasional consequence of this system due to software limitations, ambient noise, and hardware issues. Any formal questions or concerns about the content, text or information contained within the body of this dictation should be directly addressed to the provider for clarification.
== END 2025-04-14 23:59 | disposition home or self-care (01) ==
LOC: SCTC 10:09
PROVIDERS: PCP Nurse Practitioner Family; Referring Provider Nurse Practitioner Family; Visit Provider Internal Medicine Hematology & Oncology
DX: C50.411 Malignant neoplasm of upper-outer quadrant of right female breast (principal); Z17.421 Hormone receptor negative with human epidermal growth factor receptor 2 negative status
CPT/HCPCS: 99212; G0463